=== PATIENT | female | born 2000 | race American Indian/Alaskan Native ===

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

== ENCOUNTER 2019-02-25 00:48 | Emergency (ER) | payer MEDICAID ==
[~2019-02-25] VITALS: Ht 157.5 cm; Wt 65.5 kg
[~2019-02-25 00:48] MED LIST changes: -PENI250T2 PO
[2019-02-25 01:58] LABS: BASOPHILS % (AUTO) 0.5 % (0-1); EOSINOPHILS # (AUTO) 0.1 X10'3 (0-0.9); EOSINOPHILS % (AUTO) 1.1 % (0-6); HEMATOCRIT 41.2 % (35.0-45.0); HEMOGLOBIN 13.8 g/dl (12.0-16.0); LYMPHOCYTES # (AUTO) 2.5 X10'3 (1.1-4.8); LYMPHOCYTES % (AUTO) 31.4 % (21-51); MEAN CORPUSCULAR HEMOGLOBIN 28.2 PG (27.0-31.0); MEAN CORPUSCULAR HGB CONC 33.5 g/dL (33.0-36.5); MEAN CORPUSCULAR VOLUME 84.4 FL (78-98); MEAN PLATELET VOLUME 7.7 FL (7.4-10.4); MONOCYTES # (AUTO) 0.3 X10'3 (0-0.9); MONOCYTES % (AUTO) 4.2 % (2-12); NEUTROPHILS % (AUTO) 62.8 % (42-75); PLATELET COUNT 330 X10'3 (140-440); RED BLOOD COUNT 4.88 X10'6 (4.20-5.60); RED CELL DISTRIBUTION WIDTH 13.8 % (11.5-14.5); WHITE BLOOD COUNT 7.9 X10'3 (4.5-11.0)
[2019-02-25 02:10] LABS: ALANINE AMINOTRANSFERASE 44 U/L (12-78); ALBUMIN 4.3 G/DL (3.4-5.0); ALKALINE PHOSPHATASE 67 IU/L (20-180); ANION GAP 9 (8-16); ASPARTATE AMINO TRANSFERASE 16 U/L (10-37); BILIRUBIN,TOTAL 0.2 MG/DL (0.1-1.0); BLOOD UREA NITROGEN 13 MG/DL (7-18); BUN/CREATININE RATIO 20.6 (6.6-38.0); CALCIUM 9.8 MG/DL (8.5-10.1); CHLORIDE 103 MMOL/L (99-107); CREATININE 0.63 MG/DL (0.40-0.90); GLUCOSE 83 MG/DL (70-104); POTASSIUM 3.4 MMOL/L (3.5-5.1); SODIUM 136 MMOL/L (135-145); TOTAL CARBON DIOXIDE 23.8 MMOL/L (24-32); TOTAL PROTEIN 8.4 G/DL (6.4-8.2); eGFR > 90 ML/MIN
[2019-02-25 03:18] LABS: BETA HCG,QUANTITATIVE 10467 mIU/ml
--- NOTE | 2019-02-25 03:27 | NUR ---
Dr Sloan engaged in .
[2019-02-25 03:48] VITALS: BP 116/64
== END 2019-02-25 03:50 | disposition home or self-care (01) ==
LOC: ER 00:48
DX: O20.0 Threatened abortion (principal); Z3A.01 Less than 8 weeks gestation of pregnancy; Z88.5 Allergy status to narcotic agent; Z79.899 Other long term (current) drug therapy
CPT/HCPCS: 36415; 80053; 84702; 85025; 86900; 86901; 99284

== ENCOUNTER 2019-03-01 13:19 | Emergency (ER) | payer MEDICAID ==
[~2019-03-01] VITALS: Ht 157.5 cm; Wt 64.0 kg
[2019-03-01 14:01] LABS: BASOPHILS % (AUTO) 0.2 % (0-1); EOSINOPHILS % (AUTO) 0.7 % (0-6); HEMATOCRIT 38.9 % (35.0-45.0); HEMOGLOBIN 13.2 g/dl (12.0-16.0); LYMPHOCYTES # (AUTO) 1.7 X10'3 (1.1-4.8); LYMPHOCYTES % (AUTO) 26.9 % (21-51); MEAN CORPUSCULAR HEMOGLOBIN 28.5 PG (27.0-31.0); MEAN CORPUSCULAR HGB CONC 33.9 g/dL (33.0-36.5); MEAN PLATELET VOLUME 7.7 FL (7.4-10.4); MONOCYTES # (AUTO) 0.3 X10'3 (0-0.9); MONOCYTES % (AUTO) 5.5 % (2-12); NEUTROPHILS # (AUTO) 4.2 X10'3 (1.8-7.7); NEUTROPHILS % (AUTO) 66.7 % (42-75); PLATELET COUNT 286 X10'3 (140-440); RED BLOOD COUNT 4.63 X10'6 (4.20-5.60); RED CELL DISTRIBUTION WIDTH 13.6 % (11.5-14.5); WHITE BLOOD COUNT 6.3 X10'3 (4.5-11.0)
[2019-03-01 14:11] LABS: INR 1.1 INR; PROTHROMBIN TIME 10.8 SECONDS (9.0-12.0)
[2019-03-01 14:14] LABS: ALANINE AMINOTRANSFERASE 43 U/L (12-78); ALBUMIN 4.2 G/DL (3.4-5.0); ALBUMIN/GLOBULIN RATIO 1.1 (1.1-1.5); ALKALINE PHOSPHATASE 68 IU/L (20-180); ANION GAP 8 (8-16); ASPARTATE AMINO TRANSFERASE 18 U/L (10-37); BILIRUBIN,TOTAL 0.5 MG/DL (0.1-1.0); BLOOD UREA NITROGEN 12 MG/DL (7-18); BUN/CREATININE RATIO 15.2 (6.6-38.0); CALCIUM 9.9 MG/DL (8.5-10.1); CHLORIDE 104 MMOL/L (99-107); CREATININE 0.79 MG/DL (0.40-0.90); GLUCOSE 83 MG/DL (70-104); POTASSIUM 3.8 MMOL/L (3.5-5.1); SODIUM 139 MMOL/L (135-145); TOTAL CARBON DIOXIDE 26.6 MMOL/L (24-32); TOTAL PROTEIN 8.1 G/DL (6.4-8.2); eGFR > 90 ML/MIN
[2019-03-01 15:21] LABS: BETA HCG,QUANTITATIVE 31062 mIU/ml
--- NOTE | 2019-03-01 16:12 | NUR ---
RELIEVING RN FOR Jono MONTEZ AT BEDSIDE TO EVAL PT
[2019-03-01 16:13] LABS: CLARITY,URINE CLOUDY (Clear); COLOR,URINE YELLOW (Yellow); GLUCOSE, URINE NEGATIVE (Neg); KETONES,URINE 40 mg/dl (Neg); LEUKOCYTE ESTERASE ,URINE MODERATE (Neg); NITRITES, URINE NEGATIVE (Neg); OCCULT BLOOD,URINE TRACE-LYSED (Neg); PH,URINE 5.5 (4.8-8.0); PROTEIN,URINE TRACE mg/dl (Neg); UA COLLECTION TYPE CLN CATCH MIDSTREAM; UROBILINOGEN,URINE 0.2 E.U/dL (0.2-1.0)
[2019-03-01 16:14] LABS: URINE HCG POSITIVE (NEG)
[2019-03-01 16:35] LABS: MUCUS STRANDS MODERATE /LPF (Neg); SQUAMOUS EPITHELIAL CELL,UR MANY /LPF (FEW)
[2019-03-01 16:39] LABS: RBC,URINE 0-2 /HPF (0-2)
[2019-03-01 16:40] LABS: BACTERIA,URINE 2+ /HPF (Neg)
[2019-03-01 16:41] LABS: TRANSITIONAL EPI CELLS,URINE FEW /HPF
--- NOTE | 2019-03-01 18:06 | NUR ---
NO HEART TONES AUSCULTATED
[2019-03-01 18:57] VITALS: BP 99/59
== END 2019-03-01 19:00 | disposition home or self-care (01) ==
LOC: ER 13:19
DX: O20.0 Threatened abortion (principal); Z3A.01 Less than 8 weeks gestation of pregnancy; Z88.5 Allergy status to narcotic agent; Z79.899 Other long term (current) drug therapy
CPT/HCPCS: 36415; 76801; 76817; 80053; 81001; 81025; 84702; 85025; 85610; 99284

== ENCOUNTER 2019-08-26 21:43 | Emergency (ER) | payer MEDICAID ==
[~2019-08-26] VITALS: Ht 154.9 cm; Wt 58.7 kg
[2019-08-26 22:31] LABS: BASOPHILS % (AUTO) 0.3 % (0-1); EOSINOPHILS # (AUTO) 0.1 X10'3 (0-0.9); EOSINOPHILS % (AUTO) 0.6 % (0-6); HEMATOCRIT 40.6 % (35.0-45.0); HEMOGLOBIN 13.7 g/dl (12.0-16.0); LYMPHOCYTES # (AUTO) 1.7 X10'3 (1.1-4.8); LYMPHOCYTES % (AUTO) 15.8 % (21-51); MEAN CORPUSCULAR HEMOGLOBIN 29.5 PG (27.0-31.0); MEAN CORPUSCULAR HGB CONC 33.7 g/dL (33.0-36.5); MEAN CORPUSCULAR VOLUME 87.3 FL (78-98); MEAN PLATELET VOLUME 8.1 FL (7.4-10.4); MONOCYTES # (AUTO) 0.6 X10'3 (0-0.9); MONOCYTES % (AUTO) 5.2 % (2-12); NEUTROPHILS # (AUTO) 8.3 X10'3 (1.8-7.7); NEUTROPHILS % (AUTO) 78.1 % (42-75); PLATELET COUNT 314 X10'3 (140-440); RED BLOOD COUNT 4.65 X10'6 (4.20-5.60); RED CELL DISTRIBUTION WIDTH 13.1 % (11.5-14.5); WHITE BLOOD COUNT 10.7 X10'3 (4.5-11.0)
[2019-08-26 22:33] LABS: ALANINE AMINOTRANSFERASE 28 U/L (12-78); ALBUMIN 4.6 G/DL (3.4-5.0); ALBUMIN/GLOBULIN RATIO 1.2 (1.1-1.5); ALKALINE PHOSPHATASE 61 IU/L (20-180); ANION GAP 11 (8-16); ASPARTATE AMINO TRANSFERASE 16 U/L (10-37); BILIRUBIN,TOTAL 0.4 MG/DL (0.1-1.0); BLOOD UREA NITROGEN 10 MG/DL (7-18); CALCIUM 8.8 MG/DL (8.5-10.1); CHLORIDE 105 MMOL/L (99-107); CREATININE 0.91 MG/DL (0.40-0.90); GLUCOSE 99 MG/DL (70-104); POTASSIUM 3.6 MMOL/L (3.5-5.1); SODIUM 143 MMOL/L (135-145); TOTAL CARBON DIOXIDE 26.8 MMOL/L (24-32); TOTAL PROTEIN 8.4 G/DL (6.4-8.2); eGFR 80 ML/MIN
[2019-08-26 22:35] LABS: ACETAMINOPHEN < 2.0 UG/ML (10-30); ETHANOL < 0.010 GM/DL (0.0-0.010)
[2019-08-26] MEDS ORDERED: pantoprazole 40 MG vial IV ONE (22:40)
[2019-08-26 23:07] LABS: URINE HCG NEGATIVE (NEG)
[2019-08-26 23:18] LABS: URINE AMPHETAMINE SCREEN NEGATIVE (Neg); URINE BARBITUATE SCREEN NEGATIVE (Neg); URINE BENZODIAZEPINES SCREEN NEGATIVE (Neg); URINE CANNABINOID SCREEN NEGATIVE (Neg); URINE COCAINE SCREEN NEGATIVE (Neg); URINE METHADONE SCREEN NEGATIVE (Neg); URINE OPIATE SCREEN NEGATIVE (Neg); URINE PHENCYCLIDINE SCREEN NEGATIVE (Neg)
[2019-08-26 23:23] LABS: COLOR,URINE YELLOW (Yellow); GLUCOSE, URINE NEGATIVE (Neg); KETONES,URINE NEGATIVE (Neg); LEUKOCYTE ESTERASE ,URINE TRACE (Neg); NITRITES, URINE NEGATIVE (Neg); OCCULT BLOOD,URINE NEGATIVE (Neg); PROTEIN,URINE TRACE mg/dl (Neg); UROBILINOGEN,URINE 0.2 E.U/dL (0.2-1.0)
[2019-08-26 23:29] LABS: CLARITY,URINE SLIGHTLY CLOUDY (Clear); UA COLLECTION TYPE CLN CATCH MIDSTREAM
[2019-08-26 23:30] LABS: BACTERIA,URINE FEW /HPF (Neg); RBC,URINE NONE SEEN /HPF (0-2); SQUAMOUS EPITHELIAL CELL,UR MODERATE /LPF (FEW); WBC,URINE 0-4 /HPF (0-4)
[2019-08-27] MEDS ORDERED: ondansetron 4mg rapidly disintigrating tab PO ONE ×2 (02:00→11:35)
[2019-08-27] MEDS ORDERED: NO HOME MEDS (02:17)
[2019-08-27 06:13] VITALS: BP 102/61
== END 2019-08-27 11:52 | disposition home or self-care (01) ==
LOC: ER 21:44
DX: T39.312A Poisoning by propionic acid derivatives, intentional self-harm, initial encounter (principal); R45.851 Suicidal ideations; R11.10 Vomiting, unspecified; Z88.5 Allergy status to narcotic agent; Y92.89 Other specified places as the place of occurrence of the external cause
CPT/HCPCS: 36415; 80053; 80305; 80320; 80329; 81001; 81025; 84443; 85025; 99284

== ENCOUNTER 2019-10-05 22:21 | Emergency (ER) | payer MEDICAID ==
[~2019-10-05] VITALS: Ht 157.5 cm; Wt 61.4 kg
[~2019-10-05 22:21] MED LIST changes: -LIDO20SO16 PO; -METH4TAB3 PO; +NO HOME MEDS; -ONDA4TAB12 PO
[2019-10-05 22:36] VITALS: BP 100/64
[2019-10-05] MEDS ORDERED: PENI500T2 PO (22:54)
== END 2019-10-05 23:09 | disposition home or self-care (01) ==
LOC: ER 22:22
DX: J02.0 Streptococcal pharyngitis (principal); Z88.5 Allergy status to narcotic agent
CPT/HCPCS: 87081; 87880; 99283

== ENCOUNTER 2019-10-28 19:38 | Emergency (ER) | payer MEDICAID ==
[~2019-10-28] VITALS: Ht 157.5 cm; Wt 60.0 kg
[2019-10-28 19:43] VITALS: BP 100/66
--- NOTE | 2019-10-28 20:01 | NUR ---
Note allie in EDM - 10/28/19 at 2005 by PRINCE attempted to triage patient when asked to leave her "service dog" in the lobby patient refused. Attempted to triage patient in 18 and patient became aggressive when asked what service the dog provides. The dog aggressively barked at [employer]. It was states to the patient that this situation is not going to work with the dog. The patient called Rn and "arrogant asshole" and stormed out with her dog.
[2019-10-28] MEDS ORDERED: ONDA4TAB6 PO (20:41)
== END 2019-10-28 20:58 | disposition home or self-care (01) ==
LOC: ER 19:39
DX: O99.511 Diseases of the respiratory system complicating pregnancy, first trimester (principal); J06.9 Acute upper respiratory infection, unspecified; R11.0 Nausea; Z3A.11 11 weeks gestation of pregnancy; Z88.5 Allergy status to narcotic agent; Z79.899 Other long term (current) drug therapy
CPT/HCPCS: 99283

== ENCOUNTER 2019-11-08 01:30 | Emergency (ER) | payer MEDICAID ==
[~2019-11-08] VITALS: Ht 157.5 cm; Wt 130.0 kg
[~2019-11-08 01:30] MED LIST changes: +ONDA4TAB6 PO
[2019-11-08 01:33] VITALS: BP 111/59
== END 2019-11-08 02:04 | disposition home or self-care (01) ==
LOC: ER 01:30
DX: O26.891 Other specified pregnancy related conditions, first trimester (principal); J02.9 Acute pharyngitis, unspecified; R06.02 Shortness of breath; Z88.5 Allergy status to narcotic agent; Z79.899 Other long term (current) drug therapy; Z3A.11 11 weeks gestation of pregnancy
CPT/HCPCS: 99281

== ENCOUNTER 2020-01-09 17:55 | Emergency (ER) | payer MEDICAID ==
[~2020-01-09] VITALS: Ht 157.5 cm; Wt 59.0 kg
[2020-01-09 18:11] VITALS: BP 105/72
[2020-01-09] MEDS ORDERED: ALBU8HFA PO (18:53)
== END 2020-01-09 19:46 | disposition home or self-care (01) ==
LOC: ER 17:55
DX: O99.512 Diseases of the respiratory system complicating pregnancy, second trimester (principal); J06.9 Acute upper respiratory infection, unspecified; B97.89 Other viral agents as the cause of diseases classified elsewhere; Z3A.20 20 weeks gestation of pregnancy; Z88.5 Allergy status to narcotic agent; Z79.899 Other long term (current) drug therapy
CPT/HCPCS: 87081; 87880; 99283

== ENCOUNTER 2020-07-04 11:30 | Emergency (ER) | payer MEDICAID ==
[~2020-07-04] VITALS: Ht 157.5 cm; Wt 71.2 kg
[2020-07-04 12:06] LABS: URINE HCG NEGATIVE (NEG)
[2020-07-04 12:25] LABS: URINE AMPHETAMINE SCREEN NEGATIVE (Neg); URINE BARBITUATE SCREEN NEGATIVE (Neg); URINE BENZODIAZEPINES SCREEN NEGATIVE (Neg); URINE CANNABINOID SCREEN NEGATIVE (Neg); URINE COCAINE SCREEN NEGATIVE (Neg); URINE METHADONE SCREEN NEGATIVE (Neg); URINE OPIATE SCREEN NEGATIVE (Neg); URINE PHENCYCLIDINE SCREEN NEGATIVE (Neg)
[2020-07-04 12:31] LABS: BASOPHILS % (AUTO) 0.3 % (0-1); EOSINOPHILS # (AUTO) 0.1 X10'3 (0-0.9); HEMATOCRIT 29.3 % (35.0-45.0); HEMOGLOBIN 9.5 g/dl (12.0-16.0); LYMPHOCYTES # (AUTO) 1.2 X10'3 (1.1-4.8); LYMPHOCYTES % (AUTO) 19.2 % (21-51); MEAN CORPUSCULAR HGB CONC 32.5 g/dL (33.0-36.5); MEAN CORPUSCULAR VOLUME 76.8 FL (78-98); MEAN PLATELET VOLUME 7.6 FL (7.4-10.4); MONOCYTES # (AUTO) 0.4 X10'3 (0-0.9); MONOCYTES % (AUTO) 6.5 % (2-12); NEUTROPHILS # (AUTO) 4.4 X10'3 (1.8-7.7); PLATELET COUNT 324 X10'3 (140-440); RED BLOOD COUNT 3.82 X10'6 (4.20-5.60)
[2020-07-04 12:39] LABS: ALANINE AMINOTRANSFERASE 45 U/L (12-78); ALBUMIN 3.6 G/DL (3.4-5.0); ALBUMIN/GLOBULIN RATIO 0.9 (1.1-1.5); ALKALINE PHOSPHATASE 98 IU/L (20-180); ANION GAP 12 (8-16); ASPARTATE AMINO TRANSFERASE 21 U/L (10-37); BILIRUBIN,TOTAL 0.2 MG/DL (0.1-1.0); BLOOD UREA NITROGEN 8 MG/DL (7-18); CALCIUM 8.9 MG/DL (8.5-10.1); CHLORIDE 103 MMOL/L (99-107); GLUCOSE 108 MG/DL (70-104); POTASSIUM 3.7 MMOL/L (3.5-5.1); SODIUM 139 MMOL/L (135-145); TOTAL CARBON DIOXIDE 23.6 MMOL/L (24-32); TOTAL PROTEIN 7.4 G/DL (6.4-8.2); eGFR > 90 ML/MIN
[2020-07-04 12:48] LABS: ETHANOL < 0.010 GM/DL (0.0-0.010)
--- NOTE | 2020-07-04 13:49 | NUR ---
sitting in bed
[2020-07-04 14:09] LABS: CLARITY,URINE CLOUDY (Clear); COLOR,URINE YELLOW (Yellow); GLUCOSE, URINE NEGATIVE (Neg); KETONES,URINE NEGATIVE (Neg); LEUKOCYTE ESTERASE ,URINE TRACE (Neg); NITRITES, URINE NEGATIVE (Neg); OCCULT BLOOD,URINE NEGATIVE (Neg); PH,URINE 5.5 (4.8-8.0); PROTEIN,URINE NEGATIVE (Neg); UA COLLECTION TYPE CLN CATCH MIDSTREAM; UROBILINOGEN,URINE 0.2 E.U/dL (0.2-1.0)
[2020-07-04 14:16] LABS: BACTERIA,URINE 3+ /HPF (Neg); MUCUS STRANDS MANY /LPF (Neg); RBC,URINE NONE SEEN /HPF (0-2); SQUAMOUS EPITHELIAL CELL,UR MANY /LPF (FEW)
--- NOTE | 2020-07-04 14:21 | NUR ---
talking on the phone in bed
--- NOTE | 2020-07-04 15:16 | NUR ---
talking with staff Addendum: 07/04/20 at 1517 by VEENA talking on the phone
[2020-07-04 15:20] VITALS: BP 126/72
== END 2020-07-04 15:23 | disposition home or self-care (01) ==
LOC: ER 11:30
DX: R45.851 Suicidal ideations (principal); F32.9 Major depressive disorder, single episode, unspecified; Z88.5 Allergy status to narcotic agent; Z79.899 Other long term (current) drug therapy
CPT/HCPCS: 36415; 80053; 80305; 80320; 81001; 81025; 84443; 85025; 99285

== ENCOUNTER 2020-08-12 01:24 | Emergency (ER) | payer MEDICAID ==
[~2020-08-12] VITALS: Ht 157.5 cm; Wt 65.0 kg
[2020-08-12 01:27] VITALS: BP 128/77
[2020-08-12 02:00] LABS: BASOPHILS % (AUTO) 0.5 % (0-1); EOSINOPHILS # (AUTO) 0.2 X10'3 (0-0.9); EOSINOPHILS % (AUTO) 2.6 % (0-6); HEMATOCRIT 30.4 % (35.0-45.0); HEMOGLOBIN 9.9 g/dl (12.0-16.0); LYMPHOCYTES % (AUTO) 31.7 % (21-51); MEAN CORPUSCULAR HEMOGLOBIN 24.6 PG (27.0-31.0); MEAN CORPUSCULAR HGB CONC 32.6 g/dL (33.0-36.5); MEAN CORPUSCULAR VOLUME 75.5 FL (78-98); MEAN PLATELET VOLUME 7.8 FL (7.4-10.4); MONOCYTES # (AUTO) 0.5 X10'3 (0-0.9); MONOCYTES % (AUTO) 7.7 % (2-12); NEUTROPHILS # (AUTO) 3.6 X10'3 (1.8-7.7); NEUTROPHILS % (AUTO) 57.5 % (42-75); PLATELET COUNT 325 X10'3 (140-440); RED BLOOD COUNT 4.03 X10'6 (4.20-5.60); RED CELL DISTRIBUTION WIDTH 17.1 % (11.5-14.5); WHITE BLOOD COUNT 6.2 X10'3 (4.5-11.0)
[2020-08-12 02:16] LABS: ALANINE AMINOTRANSFERASE 112 U/L (12-78); ALBUMIN 3.6 G/DL (3.4-5.0); ALKALINE PHOSPHATASE 98 IU/L (20-180); ANION GAP 9 (8-16); ASPARTATE AMINO TRANSFERASE 55 U/L (10-37); BILIRUBIN,TOTAL 0.3 MG/DL (0.1-1.0); BLOOD UREA NITROGEN 13 MG/DL (7-18); BUN/CREATININE RATIO 18.1 (6.6-38.0); CALCIUM 8.6 MG/DL (8.5-10.1); CHLORIDE 104 MMOL/L (99-107); CREATININE 0.72 MG/DL (0.40-0.90); GLUCOSE 90 MG/DL (70-104); LIPASE 184 U/L (73-393); POTASSIUM 3.4 MMOL/L (3.5-5.1); SODIUM 139 MMOL/L (135-145); TOTAL CARBON DIOXIDE 25.6 MMOL/L (24-32); TOTAL PROTEIN 7.3 G/DL (6.4-8.2); eGFR > 90 ML/MIN
[2020-08-12 02:32] LABS: CLARITY,URINE CLEAR (Clear); COLOR,URINE YELLOW (Yellow); GLUCOSE, URINE NEGATIVE (Neg); KETONES,URINE NEGATIVE (Neg); LEUKOCYTE ESTERASE ,URINE SMALL (Neg); NITRITES, URINE NEGATIVE (Neg); OCCULT BLOOD,URINE NEGATIVE (Neg); PROTEIN,URINE NEGATIVE (Neg); URINE HCG NEGATIVE (NEG); UROBILINOGEN,URINE 0.2 E.U/dL (0.2-1.0)
[2020-08-12 02:39] LABS: UA COLLECTION TYPE CLN CATCH MIDSTREAM
[2020-08-12 02:40] LABS: BACTERIA,URINE 2+ /HPF (Neg); RBC,URINE NONE SEEN /HPF (0-2); SQUAMOUS EPITHELIAL CELL,UR FEW /LPF (FEW)
[2020-08-12 02:42] LABS: WBC CLUMPS,URINE FEW /HPF (NEGATIVE)
--- NOTE | 2020-08-12 03:16 | NUR ---
AMELIA ROQUE AT BEDSIDE FOR INITIAL EVAL
[2020-08-12] MEDS ORDERED: SULF1TAB49 PO (03:27)
[2020-08-12] MEDS ORDERED: PANT-47 PO (03:27)
[2020-08-12] MEDS ORDERED: ONDA8TAB13 PO (03:27)
[2020-08-12] MEDS ORDERED: pantoprazole 40mg Tablet.DR PO ONE (03:30)
[2020-08-12] MEDS ORDERED: sulfamethoxazole/trimethoprim DS (800/160mg) tablet PO ONE (03:30)
[2020-08-12] MEDS ORDERED: ondansetron 4mg rapidly disintigrating tab PO ONE (03:30)
== END 2020-08-12 03:40 | disposition home or self-care (01) ==
LOC: ER 01:24
DX: N39.0 Urinary tract infection, site not specified (principal); R10.13 Epigastric pain; R11.0 Nausea; Z72.89 Other problems related to lifestyle; Z88.5 Allergy status to narcotic agent; Z79.899 Other long term (current) drug therapy
CPT/HCPCS: 36415; 80053; 81001; 81025; 83690; 85025; 87088; 99284

== ENCOUNTER 2020-10-16 18:29 | Emergency (ER) | payer MEDICAID ==
[~2020-10-16] VITALS: Ht 157.5 cm; Wt 63.6 kg
[~2020-10-16 18:29] MED LIST changes: +ONDA8TAB13 PO; +PANT-47 PO
[2020-10-16 19:06] LABS: BASOPHILS % (AUTO) 0.5 % (0-1); EOSINOPHILS # (AUTO) 0.1 X10'3 (0-0.9); HEMATOCRIT 32.3 % (35.0-45.0)
[2020-10-16 19:07] LABS: EOSINOPHILS % (AUTO) 1.2 % (0-6); HEMOGLOBIN 10.5 g/dl (12.0-16.0); LYMPHOCYTES # (AUTO) 0.9 X10'3 (1.1-4.8); LYMPHOCYTES % (AUTO) 22.2 % (21-51); MEAN CORPUSCULAR HEMOGLOBIN 23.8 PG (27.0-31.0); MEAN CORPUSCULAR HGB CONC 32.4 g/dL (33.0-36.5); MEAN CORPUSCULAR VOLUME 73.6 FL (78-98); MEAN PLATELET VOLUME 7.9 FL (7.4-10.4); MONOCYTES # (AUTO) 0.3 X10'3 (0-0.9); MONOCYTES % (AUTO) 7.7 % (2-12); NEUTROPHILS # (AUTO) 2.9 X10'3 (1.8-7.7); NEUTROPHILS % (AUTO) 68.4 % (42-75); PLATELET COUNT 331 X10'3 (140-440); RED BLOOD COUNT 4.39 X10'6 (4.20-5.60); RED CELL DISTRIBUTION WIDTH 16.6 % (11.5-14.5); WHITE BLOOD COUNT 4.2 X10'3 (4.5-11.0)
[2020-10-16 19:17] LABS: ALANINE AMINOTRANSFERASE 568 U/L (12-78); ALBUMIN 3.9 G/DL (3.4-5.0); ALKALINE PHOSPHATASE 145 IU/L (46-116); AMYLASE 56 U/L (25-115); ANION GAP 8 (8-16); ASPARTATE AMINO TRANSFERASE 590 U/L (10-37); BILIRUBIN,TOTAL 1.8 MG/DL (0.1-1.0); BLOOD UREA NITROGEN 11 MG/DL (7-18); BUN/CREATININE RATIO 12.2 (6.6-38.0); CALCIUM 9.1 MG/DL (8.5-10.1); CHLORIDE 107 MMOL/L (99-107); GLUCOSE 90 MG/DL (70-104); LIPASE 165 U/L (73-393); POTASSIUM 3.7 MMOL/L (3.5-5.1); SODIUM 145 MMOL/L (135-145); TOTAL CARBON DIOXIDE 29.9 MMOL/L (24-32); TOTAL PROTEIN 7.8 G/DL (6.4-8.2); eGFR 79 ML/MIN
[2020-10-16 19:53] LABS: CLARITY,URINE SLIGHTLY CLOUDY (Clear); COLOR,URINE AMBER (Yellow); GLUCOSE, URINE NEGATIVE (Neg); KETONES,URINE NEGATIVE (Neg); LEUKOCYTE ESTERASE ,URINE MODERATE (Neg); NITRITES, URINE NEGATIVE (Neg); OCCULT BLOOD,URINE NEGATIVE (Neg); PROTEIN,URINE TRACE mg/dl (Neg)
[2020-10-16 19:57] LABS: UA COLLECTION TYPE CLN CATCH MIDSTREAM
[2020-10-16 19:59] LABS: BACTERIA,URINE 2+ /HPF (Neg); RBC,URINE NONE SEEN /HPF (0-2); SQUAMOUS EPITHELIAL CELL,UR MODERATE /LPF (FEW)
[2020-10-16 20:03] LABS: URINE HCG NEGATIVE (NEG)
[2020-10-16 21:12] LABS: D-DIMER 1.11 MG/L FEU (0-0.50); PARTIAL THROMBOPLASTIN TIME 23 SECONDS (22-32)
[2020-10-16 21:15] LABS: ETHANOL < 0.010 GM/DL (0.0-0.010)
--- NOTE | 2020-10-16 21:16 | NUR ---
us on their way to bedside
[2020-10-16 21:28] LABS: URINE AMPHETAMINE SCREEN NEGATIVE (Neg); URINE BARBITUATE SCREEN NEGATIVE (Neg); URINE BENZODIAZEPINES SCREEN NEGATIVE (Neg); URINE CANNABINOID SCREEN NEGATIVE (Neg); URINE COCAINE SCREEN NEGATIVE (Neg); URINE METHADONE SCREEN NEGATIVE (Neg); URINE OPIATE SCREEN NEGATIVE (Neg); URINE PHENCYCLIDINE SCREEN NEGATIVE (Neg)
[2020-10-16 22:17] VITALS: BP 98/64
[2020-10-17] MEDS ORDERED: NO HOME MEDS (20:39)
== END 2020-10-16 22:19 | disposition home or self-care (01) ==
LOC: ER 18:29
DX: K80.20 Calculus of gallbladder without cholecystitis without obstruction (principal); R74.01 Elevation of levels of liver transaminase levels; R10.84 Generalized abdominal pain; R11.2 Nausea with vomiting, unspecified; R19.7 Diarrhea, unspecified; Z72.89 Other problems related to lifestyle; Z88.5 Allergy status to narcotic agent; Z79.899 Other long term (current) drug therapy
CPT/HCPCS: 36415; 76700; 80053; 80305; 80320; 81001; 81025; 82150; 83690; 85025; 85379; 85610; 85730; 87088; 99284

== ENCOUNTER 2020-10-17 17:04 | Inpatient (IN) | payer MEDICAID ==
[~2020-10-17] VITALS: Ht 157.5 cm; Wt 61.4 kg
--- NOTE | 2020-10-17 17:27 | NUR ---
PT HAS MILAN NO FOOD TODAY. PT HAS HAD WATER AND GINGERALE AT 1300.
[2020-10-17 18:26] LABS: BASOPHILS % (AUTO) 0.2 % (0-1); EOSINOPHILS # (AUTO) 0.1 X10'3 (0-0.9); EOSINOPHILS % (AUTO) 1.6 % (0-6); HEMATOCRIT 32.6 % (35.0-45.0); HEMOGLOBIN 10.5 g/dl (12.0-16.0); LYMPHOCYTES % (AUTO) 18.2 % (21-51); MEAN CORPUSCULAR HGB CONC 32.2 g/dL (33.0-36.5); MEAN CORPUSCULAR VOLUME 74.6 FL (78-98); MEAN PLATELET VOLUME 8.1 FL (7.4-10.4); MONOCYTES # (AUTO) 0.3 X10'3 (0-0.9); MONOCYTES % (AUTO) 5.9 % (2-12); NEUTROPHILS # (AUTO) 4.1 X10'3 (1.8-7.7); NEUTROPHILS % (AUTO) 74.1 % (42-75); PLATELET COUNT 300 X10'3 (140-440); RED BLOOD COUNT 4.38 X10'6 (4.20-5.60); RED CELL DISTRIBUTION WIDTH 16.2 % (11.5-14.5); WHITE BLOOD COUNT 5.6 X10'3 (4.5-11.0)
[2020-10-17 18:39] LABS: ALANINE AMINOTRANSFERASE 710 U/L (12-78); ALBUMIN 3.7 G/DL (3.4-5.0); ALBUMIN/GLOBULIN RATIO 0.9 (1.1-1.5); ALKALINE PHOSPHATASE 211 IU/L (46-116); ANION GAP 8 (8-16); ASPARTATE AMINO TRANSFERASE 415 U/L (10-37); BILIRUBIN,TOTAL 3.2 MG/DL (0.1-1.0); BLOOD UREA NITROGEN 8 MG/DL (7-18); BUN/CREATININE RATIO 9.3 (6.6-38.0); CALCIUM 9.3 MG/DL (8.5-10.1); CHLORIDE 105 MMOL/L (99-107); CREATININE 0.86 MG/DL (0.40-0.90); GLUCOSE 85 MG/DL (70-104); POTASSIUM 3.7 MMOL/L (3.5-5.1); SODIUM 140 MMOL/L (135-145); TOTAL CARBON DIOXIDE 26.8 MMOL/L (24-32); TOTAL PROTEIN 7.6 G/DL (6.4-8.2); eGFR 83 ML/MIN
[2020-10-17] MEDS ORDERED: iohexol 300mg/ml 100ml inj. ONE (19:07)
[2020-10-17 19:17] LABS: LIPASE 4705 U/L (73-393)
[2020-10-17] MEDS ORDERED: normal saline 1000ML IV soln IVB ONE (20:15)
[2020-10-17] MEDS ORDERED: morphine 2 MG/ML inj. syringe IV PRN (20:15)
[2020-10-17] MEDS ORDERED: morphine 4 MG/ML inj SYRINge IV ONE (20:15)
[2020-10-17] MEDS ORDERED: NO HOME MEDS (20:39)
[2020-10-17] MEDS ORDERED: ondansetron/PF 4mg/2ml inj IV PRN (22:00)
[2020-10-17] MEDS ORDERED: HYDROmorphone inj. 0.5 MG/0.5 ML DISP.SYRIN IV PRN (22:00)
[2020-10-17] MEDS ORDERED: CADD PCA waste documentation MC PRN (22:05)
[2020-10-17] MEDS ORDERED: naloxone 0.4 mg/ml inj IV PRN (22:05)
[2020-10-17] MEDS ORDERED: CefTRIAXone/D5W-Rocephin 1gm 50 ML IV ONE (22:10)
[2020-10-17] MEDS: normal saline 1000ml 1,000 ML IV SCH (23:01)
[2020-10-17] MEDS: morphine/NS 5 mg/ml CADD 50 ML IV SCH (23:09)
[2020-10-17 23:24] VITALS: BP 112/78
[2020-10-18] VITALS (26 sets, daily range): BP systolic 95–126; BP diastolic 40–76
[2020-10-18] MEDS: morphine/NS 5 mg/ml CADD 50 ML IV SCH ×7 (01:00→13:00)
[2020-10-18 04:48] LABS: BASOPHILS % (AUTO) 0.2 % (0-1); EOSINOPHILS # (AUTO) 0.1 X10'3 (0-0.9); EOSINOPHILS % (AUTO) 2.1 % (0-6); HEMATOCRIT 27.5 % (35.0-45.0); LYMPHOCYTES # (AUTO) 1.3 X10'3 (1.1-4.8); LYMPHOCYTES % (AUTO) 27.9 % (21-51); MEAN CORPUSCULAR HEMOGLOBIN 24.2 PG (27.0-31.0); MEAN CORPUSCULAR HGB CONC 32.6 g/dL (33.0-36.5); MEAN CORPUSCULAR VOLUME 74.1 FL (78-98); MONOCYTES # (AUTO) 0.3 X10'3 (0-0.9); NEUTROPHILS % (AUTO) 62.8 % (42-75); PLATELET COUNT 252 X10'3 (140-440); RED BLOOD COUNT 3.71 X10'6 (4.20-5.60); RED CELL DISTRIBUTION WIDTH 16.6 % (11.5-14.5); WHITE BLOOD COUNT 4.8 X10'3 (4.5-11.0)
[2020-10-18 05:03] LABS: ALANINE AMINOTRANSFERASE 541 U/L (12-78); ALBUMIN 2.9 G/DL (3.4-5.0); ALBUMIN/GLOBULIN RATIO 0.9 (1.1-1.5); ALKALINE PHOSPHATASE 179 IU/L (46-116); ANION GAP 6 (8-16); ASPARTATE AMINO TRANSFERASE 230 U/L (10-37); BILIRUBIN,TOTAL 1.7 MG/DL (0.1-1.0); BLOOD UREA NITROGEN 4 MG/DL (7-18); CALCIUM 8.2 MG/DL (8.5-10.1); CHLORIDE 109 MMOL/L (99-107); GLUCOSE 82 MG/DL (70-104); LIPASE 1155 U/L (73-393); POTASSIUM 3.6 MMOL/L (3.5-5.1); SODIUM 142 MMOL/L (135-145); TOTAL CARBON DIOXIDE 26.9 MMOL/L (24-32); TOTAL PROTEIN 6.2 G/DL (6.4-8.2); eGFR > 90 ML/MIN
--- NOTE | 2020-10-18 06:39 | NUR ---
Patient in room [facility]. I have received report from NIKKI Valdez and had the opportunity to ask questions and assume patient care.
--- NOTE | 2020-10-18 06:42 | NUR ---
Problems reprioritized. Patient report given, questions answered & plan of care reviewed with OBINNA JORDAN.
[2020-10-18] MEDS ORDERED: proCHLORperazine 10 MG/2 ml inj ONE (07:58)
[2020-10-18] MEDS ORDERED: MIDAZolam 5mg/5ml vial ONE (07:58)
[2020-10-18] MEDS ORDERED: fentaNYL/PF 50MCG/1 ML 2ML syringe ONE (07:58)
[2020-10-18] MEDS ORDERED: diphenhydrAMINE 50 mg/ml inj ONE (07:58)
[2020-10-18] MEDS ORDERED: levoFLOXACIN-Levaquin 500mg/D5 100 ML IV ONE (07:59)
[2020-10-18] MEDS ORDERED: glucagon, human recombinant 1mg kit ONE (07:59)
[2020-10-18] MEDS ORDERED: iohexol 300 MG/1 ML 50ml polymer ONE (07:59)
[2020-10-18] MEDS ORDERED: LIDOcaine Viscous 15ml cup ONE (07:59)
--- NOTE | 2020-10-18 08:00 | NUR ---
pt transported to GI lab for ERCP via wheelchair. Belongings left in room 340N
[2020-10-18] MEDS: normal saline 1000ml 1,000 ML IV SCH ×2 (11:52→20:08)
[2020-10-18] MEDS ORDERED: BUPIVAcaine/PF 2.5 mg/ml (0.25%) 30ml vial ONE (14:26)
[2020-10-18] MEDS ORDERED: INDOCYANINE GREEN 25 MG/10 ML VIAL IV ONE (14:30)
[2020-10-18] MEDS ORDERED: ondansetron/PF 4mg/2ml inj IV PRN ×2 (14:35→16:45)
[2020-10-18] MEDS ORDERED: proCHLORperazine 10 MG/2 ml inj IV PRN (14:35)
[2020-10-18] MEDS ORDERED: morphine 2 MG/ML inj. syringe IV PRN (14:35)
[2020-10-18] MEDS ORDERED: ringers solution, lacted 1,000 ML IV SCH (14:35)
[2020-10-18] MEDS ORDERED: morphine 4 MG/ML inj SYRINge IV PRN (14:35)
[2020-10-18] MEDS ORDERED: meperidine/PF 25mg/ml syringe IV PRN ×3 (14:35)
[2020-10-18] MEDS ORDERED: labetalol 20mg/4ml (5mg/ml) syringe IV PRN (14:35)
[2020-10-18] MEDS ORDERED: hydrALAZINE 20mg/ml inj. IV PRN (14:35)
[2020-10-18] MEDS ORDERED: acetaminophen 1,000mg/100ml IV 100 ML IV PRN (14:35)
[2020-10-18] MEDS ORDERED: fentaNYL /PF 50mcg/ml 5ml ampule ONE (14:58)
[2020-10-18] MEDS ORDERED: midazolam 2 mg/2 ml injection ONE (14:58)
[2020-10-18] MEDS ORDERED: LIDOcaine 2% 5ml jelly ONE (14:59)
--- NOTE | 2020-10-18 15:10 | NUR ---
Pt transported to OR via hospital bed. All belongings left in room 344B.
--- NOTE | 2020-10-18 15:13 | NUR ---
Report given to Karyna JORDAN in recovery
[2020-10-18] MEDS ORDERED: ondansetron/PF 4mg/2ml inj ONE (16:06)
[2020-10-18] MEDS ORDERED: propofol inj 20 ML IV ONE (16:06)
[2020-10-18] MEDS ORDERED: 0.9 % SODIUM CHLORIDE 10 ML VIAL ONE (16:06)
[2020-10-18] MEDS ORDERED: LIDOcaine 2% (20mg/ml) 5ml vial ONE (16:06)
[2020-10-18] MEDS ORDERED: ceFOXitin 1000 MG inj ONE ×2 (16:06)
[2020-10-18] MEDS ORDERED: ePHEDrine 50MG/ML INJ. ONE (16:06)
[2020-10-18] MEDS ORDERED: rocuronium 10mg/ml inj IV ONE (16:06)
[2020-10-18] MEDS ORDERED: dexamethasone sod phosphate 4mg/ml inj. ONE (16:06)
[2020-10-18] MEDS ORDERED: sugammadex 200mg/2ml injection IV ONE (16:33)
[2020-10-18] MEDS ORDERED: HYDROcodone/acetaminophen 10/325mg tab PO PRN (16:50)
--- NOTE | 2020-10-18 17:03 | NUR ---
Received from OR via , accompanied by Anesthesiologist DR DAMON and report given by Anesthesiolgist. PT SLEEPING BUT OPENING EYES TO VOICE, 4 BA'S ON THE ABD CD, SCD'S ON, PIV RIGHT AC 20G WITH LR 100ML/HR AND IV TYLENOL INFUSING, PT DOES NOT APPEAR TO BE IN DISCOMFORT.
--- NOTE | 2020-10-18 17:33 | NUR ---
Report called to receiving nurse. Transferred via BED Belongings . Special Issues communicated to receiving nurSE OBINNA JORDAN. PT HAS BEEN AWAKE SITTING UP IN BED, JUAN PABLO WATER, CURRENTLY SLEEPING AGAIN AND APPEARS TO NOT BE IN DISCOMFORT, SCD'S ON, 4 BA'S ON ABD CD, PIV PATENT, PT MEETS DISCHARGE CRITERIA. WILL TRANSPORT TO ROOM 344B.
--- NOTE | 2020-10-18 17:40 | NUR ---
Pt returned from OR via hospital bed. Post Op vitals started. Pt in no apparent distress. Will continue to monitor.
--- NOTE | 2020-10-18 18:15 | NUR ---
Problems reprioritized. Patient report given, questions answered & plan of care reviewed with NIKKI Valdez.
--- NOTE | 2020-10-18 18:15 | NUR ---
Patient in room [facility]. I have received report from OBINNA JORDAN and had the opportunity to ask questions and assume patient care.
[2020-10-18] MEDS: HYDROcodone/acetaminophen 10/325mg tab PO PRN (20:07)
[2020-10-18] MEDS ORDERED: CefTRIAXone/D5W-Rocephin 1gm 50 ML IV SCH (22:00)
[2020-10-19] VITALS: BP 118/75
[2020-10-19] MEDS: HYDROcodone/acetaminophen 10/325mg tab PO PRN ×2 (01:13→10:19)
[2020-10-19] MEDS ORDERED: morphine 2 MG/ML inj. syringe IV PRN (03:25)
[2020-10-19] MEDS: normal saline 1000ml 1,000 ML IV SCH (04:00)
[2020-10-19 04:15] VITALS: BP 131/73
[2020-10-19 06:02] LABS: BASOPHILS % (AUTO) 0.1 % (0-1); EOSINOPHILS % (AUTO) 0 % (0-6); HEMOGLOBIN 9.8 g/dl (12.0-16.0); LYMPHOCYTES # (AUTO) 0.6 X10'3 (1.1-4.8); LYMPHOCYTES % (AUTO) 7.7 % (21-51); MEAN CORPUSCULAR HEMOGLOBIN 24.3 PG (27.0-31.0); MEAN CORPUSCULAR HGB CONC 32.7 g/dL (33.0-36.5); MEAN CORPUSCULAR VOLUME 74.3 FL (78-98); MEAN PLATELET VOLUME 8.3 FL (7.4-10.4); MONOCYTES # (AUTO) 0.4 X10'3 (0-0.9); MONOCYTES % (AUTO) 4.8 % (2-12); NEUTROPHILS # (AUTO) 6.8 X10'3 (1.8-7.7); NEUTROPHILS % (AUTO) 87.4 % (42-75); PLATELET COUNT 284 X10'3 (140-440); RED BLOOD COUNT 4.04 X10'6 (4.20-5.60); RED CELL DISTRIBUTION WIDTH 16.4 % (11.5-14.5); WHITE BLOOD COUNT 7.8 X10'3 (4.5-11.0)
[2020-10-19 06:03] LABS: GLUCOSE 136 MG/DL (70-104)
[2020-10-19 06:04] LABS: ALANINE AMINOTRANSFERASE 455 U/L (12-78); ALBUMIN 3.1 G/DL (3.4-5.0); ALBUMIN/GLOBULIN RATIO 0.8 (1.1-1.5); ALKALINE PHOSPHATASE 202 IU/L (46-116); ANION GAP 11 (8-16); ASPARTATE AMINO TRANSFERASE 151 U/L (10-37); BILIRUBIN,TOTAL 0.7 MG/DL (0.1-1.0); BLOOD UREA NITROGEN 4 MG/DL (7-18); BUN/CREATININE RATIO 5.4 (6.6-38.0); CALCIUM 8.9 MG/DL (8.5-10.1); CHLORIDE 107 MMOL/L (99-107); CREATININE 0.74 MG/DL (0.40-0.90); POTASSIUM 3.9 MMOL/L (3.5-5.1); SODIUM 141 MMOL/L (135-145); TOTAL CARBON DIOXIDE 23.4 MMOL/L (24-32); TOTAL PROTEIN 6.9 G/DL (6.4-8.2); eGFR > 90 ML/MIN
--- NOTE | 2020-10-19 06:35 | NUR ---
Problems reprioritized. Patient report given, questions answered & plan of care reviewed with ADELFO JORDAN.
--- NOTE | 2020-10-19 06:53 | NUR ---
Patient in room [facility]. I have received report from Courtney JORDAN and had the opportunity to ask questions and assume patient care.
[2020-10-19 06:55] VITALS: BP 108/62
--- NOTE | 2020-10-19 07:28 | NUR ---
LR acknowledged but not given by myself. Medication possibly given in OR. Note to pharmacy sent but reported that they can't do anything with eMAR.
[2020-10-19 10:23] LABS: LIPASE 284 U/L (73-393)
[2020-10-19] MEDS ORDERED: TRAM50TA2 PO (11:04)
[2020-10-19 11:26] VITALS: BP 123/84
[2020-10-19] MEDS ORDERED: lactobacillus rhamnosus 10,000 MMU CELLS/CAPSULE PO SCH (20:00)
== END 2020-10-19 12:20 | disposition home or self-care (01) | DRG 263 ==
LOC: ER 17:06 → ED HOLD 21:58 → SUR 3N 22:50 → PACU 10-18 15:11 → SUR 3N 10-18 17:35
PROVIDERS: ADMIT Internal Medicine; ATTEND Surgery
PROC: 8E0W4CZ Robotic Assisted Procedure of Trunk Region, Percutaneous Endoscopic Approach (ICD-10-PCS; 2020-10-18)
PROC: BW211ZZ Computerized Tomography (CT Scan) of Abdomen and Pelvis using Low Osmolar Contrast (ICD-10-PCS; 2020-10-18)
PROC: 0F798ZZ Dilation of Common Bile Duct, Via Natural or Artificial Opening Endoscopic (ICD-10-PCS; 2020-10-18)
PROC: BF101ZZ Fluoroscopy of Bile Ducts using Low Osmolar Contrast (ICD-10-PCS; 2020-10-18)
PROC: 0FT44ZZ Resection of Gallbladder, Percutaneous Endoscopic Approach (ICD-10-PCS; principal; 2020-10-18 15:12)
DX: K85.10 Biliary acute pancreatitis without necrosis or infection (principal); Z20.828 Contact with and (suspected) exposure to other viral communicable diseases; Z88.5 Allergy status to narcotic agent; K82.8 Other specified diseases of gallbladder; K80.10 Calculus of gallbladder with chronic cholecystitis without obstruction
CPT/HCPCS: 36415; 43262; 43264; 74177; 80053; 82948; 83690; 85025; 87081; 87635; 96374; 99152; 99153; 99285; A4215; A4618; A4620; A6222; A6223; A7000; C1769; C9399; C9803; G0378; J0131; J0694; J0696; J0780; J1100; J1200; J1610; J1956; J2001; J2175; J2250; J2270; J2405; J2704; J3010; J3490; J7030; J7040; J7120; Q9967

== ENCOUNTER 2021-02-18 22:48 | Emergency (ER) | payer MEDICAID ==
[~2021-02-18] VITALS: Ht 157.5 cm; Wt 61.9 kg
[2021-02-18 22:50] VITALS: BP 112/70
[2021-02-19] MEDS ORDERED: amoxicillin 250mg capsule PO ONE (00:50)
[2021-02-19] MEDS ORDERED: AMOX-101 PO (00:52)
== END 2021-02-19 01:02 | disposition home or self-care (01) ==
LOC: ER 22:49
DX: J02.0 Streptococcal pharyngitis (principal); Z88.5 Allergy status to narcotic agent; Z79.2 Long term (current) use of antibiotics
CPT/HCPCS: 87081; 87880; 99283

== ENCOUNTER 2021-09-29 23:03 | Emergency (ER) | payer MEDICAID ==
[~2021-09-29] VITALS: Ht 157.5 cm; Wt 59.0 kg
[2021-09-29] MEDS ORDERED: dexamethasone sod phosphate 10mg/ml inj IV STA (23:35)
[2021-09-29] MEDS ORDERED: normal saline 1000ML IV soln IVB ONE (23:35)
[2021-09-29] MEDS ORDERED: LORazepam 2 mg/ml vial IV ONE (23:35)
[2021-09-29] MEDS ORDERED: ketorolac trometh. 30mg/ml inj. IV ONE (23:35)
[2021-09-29] MEDS ORDERED: metoclopramide 5 mg/ml inj IV ONE (23:35)
[2021-09-30 00:51] VITALS: BP 98/70
== END 2021-09-30 02:27 | disposition home or self-care (01) ==
LOC: ER 23:04
DX: R51.9 Headache, unspecified (principal); R11.2 Nausea with vomiting, unspecified; F41.9 Anxiety disorder, unspecified; F32.9 Major depressive disorder, single episode, unspecified; F17.200 Nicotine dependence, unspecified, uncomplicated; Z88.5 Allergy status to narcotic agent
CPT/HCPCS: 96374; 96375; 99284; J1100; J1885; J2060; J2765; J7030